=== PATIENT | male | born 1990 | race Caucasian/White ===

== ENCOUNTER 2021-10-06 16:40 | Emergency (ER) | payer OTHER, BC ==
[~2021-10-06] VITALS: Ht 182.9 cm; Wt 114.8 kg
[2021-10-06 17:17] VITALS: BP 154/100
--- NOTE | 2021-10-06 17:22 | NUR ---
PT TO WAIT IN LOBBY.
[2021-10-06] MEDS ORDERED: NAPR-54 PO (17:43)
[2021-10-06] MEDS ORDERED: LID5T TP (17:43)
[2021-10-06] MEDS ORDERED: METH-1681 PO (17:43)
--- NOTE | 2021-10-06 18:25 | NUR ---
Patient discharged with v/s stable. Written and verbal after care instructions ABOUT LOW BACK SPRAIN given and explained. Patient alert, oriented and verbalized understanding of instructions. Ambulatory with steady gait. All questions addressed prior to discharge. ID band removed. Patient advised to follow up with PMD. Rx of LIDOCAINE PATCH, ROBAXIN, AND NAPROXEN given. Patient educated on indication of medication including possible reaction and side effects. Opportunity to ask questions provided and answered.
== END 2021-10-06 18:25 | disposition home or self-care (01) ==
LOC: MED 16:40
DX: S39.012A Strain of muscle, fascia and tendon of lower back, initial encounter (principal); R03.0 Elevated blood-pressure reading, without diagnosis of hypertension; Z79.899 Other long term (current) drug therapy; V89.2XXA Person injured in unspecified motor-vehicle accident, traffic, initial encounter; Y93.89 Activity, other specified; Y92.89 Other specified places as the place of occurrence of the external cause; Y99.8 Other external cause status
CPT/HCPCS: 99283